=== PATIENT | male | born 1990 | race Caucasian/White ===

== ENCOUNTER 2017-10-10 05:36 | Day surgery (SDC) | payer OTHER ==
[2017-10-09 11:59] VITALS: BMI 22.8
[~2017-10-10] VITALS: Ht 180.3 cm; Wt 72.0 kg
[2017-10-10 06:00] VITALS: BP 104/61; PULSE 60; RESP 18; Ht 180.3 cm; Wt 72.0 kg
[2017-10-10] MEDS ORDERED: CEFAZOLIN 2 GM/50 ML (PMX) 50 ML IVPB SCH (06:30)
[2017-10-10] MEDS ORDERED: SOD CHLORIDE 0.9% 1,000 ML IV SCH (06:30)
[2017-10-10] MEDS ORDERED: BUPIVACAINE 0.25% (MPF) 30 ML INJ ONE (07:26)
[2017-10-10] MEDS ORDERED: MIDAZOLAM 1 MG/ML 2 ML INJ ONE (08:35)
[2017-10-10] MEDS ORDERED: PROPOFOL 20 ML ONE (08:35)
[2017-10-10] MEDS ORDERED: FENTAnyl 50 MCG/ML VIAL ONE (08:35)
[2017-10-10] MEDS ORDERED: LIDOCAINE 2% (SDV) 5 ML INJ ONE (08:35)
[2017-10-10] MEDS ORDERED: LIDOCAINE 1% (MPF) 30 ML INJ ONE (08:49)
[2017-10-10] MEDS ORDERED: LIDOCAINE 1% (MPF) 30 ML INJ INJ ONE (08:50)
[2017-10-10] MEDS ORDERED: EPHEDrine SULFATE 50 MG/5 ML SYG ONE (08:51)
[2017-10-10] MEDS ORDERED: ONDANSETRON 4 MG INJ ONE (08:51)
[2017-10-10] MEDS ORDERED: ACETAMINOPHEN 325 MG TAB PO ONE (09:00)
--- NOTE | 2017-10-10 09:02 | OPR ---
Date/Time of Note Date/Time of Note DATE: 10/10/17 TIME: 08:59 Operative Report Procedure Date: Oct 10, 2017 Preoperative Diagnosis right back mass Postoperative Diagnosis same Operation/Procedure Performed 1. right back mass excision 3 cm mass 3 cm incision 2. localized adjacent tissue transfer with the use of skin flaps 6 sq cm defect 3. therapeutic injection of subcutaneous local anesthesia Surgeon see signature line Pm Technician none Anesthesia Type: MAC Estimated Blood Loss: 0 - 10 ml's Transfusion none Specimen right back mass Grafts/Implants none Complications none Pt Condition Post Procedure: stable Indications This is a 27-year-old male with right back mass. He requests surgical excision. Risks alternatives benefits and percent were discussed the patient. Patient expressed understanding consents to the operation. Procedure Description Patient is taken to the OR and prepped and draped in the usual sterile fashion. Surgical timeout was performed. IV antibiotics are given. Elliptical incision is made over the right back mass after subcutaneous therapy local anesthesia was injected throughout the mass site. Dissection cautery was carried down to the mass and excised. There is good hemostasis. Due to tissue defect localized adjacent tissue transfer with these of skin flaps was performed. Multilayer closure with interrupted 3-0 Vicryl and skin kendall. Therapeutic subcutaneous local anesthesia was additionally injected. Dry dressings were applied Osmar BARKSDALE Oct 10, 2017 09:02
[2017-10-10 09:06] VITALS: BP 140/70; PULSE 106; RESP 14
[2017-10-10 09:11] VITALS: BP 137/66; PULSE 114; RESP 16
[2017-10-10 09:29] VITALS: BP 131/80; PULSE 99; RESP 18
[2017-10-10] MEDS ORDERED: HYDROmorphONE (0.2 MG/ML) 10ML SYG IV PRN (09:30)
[2017-10-10] MEDS ORDERED: DIPHENHYDRAMINE 50 MG INJ IV PRN (09:30)
[2017-10-10] MEDS ORDERED: MEPERIDINE 25 MG INJ IV PRN (09:30)
[2017-10-10] MEDS ORDERED: OXYCODONE/ACETAMINOPHEN (5/325) TAB PO PRN (09:30)
[2017-10-10] MEDS ORDERED: ONDANSETRON 4 MG INJ IV PRN (09:30)
[2017-10-10] MEDS ORDERED: PROCHLORPERAZINE 10 MG INJ IV PRN (09:30)
[2017-10-10] MEDS ORDERED: FENTAnyl 50 MCG/ML VIAL IV PRN (09:30)
== END 2017-10-10 10:04 | disposition home or self-care (01) ==
LOC: SDS 05:36
PROVIDERS: ATTEND Surgery
DX: L90.5 Scar conditions and fibrosis of skin (principal)
CPT/HCPCS: 14000; 88307; J2250; J2405; J3010; Z7512; Z7610